=== PATIENT | female | born 1980 | race Caucasian/White ===

== ENCOUNTER 2020-11-29 14:23 | Emergency (ER) | payer OTHER ==
[2020-11-29 14:41] VITALS: BP 129/89; PULSE 72; TEMP 98.1; BMI 29.2
[2020-11-29] MEDS ORDERED: ONDANSETRON 4 MG/2 ML VIAL IVPB ONE (16:41)
[2020-11-29] MEDS ORDERED: SODIUM CHLORIDE 1,000 ML IV STA ×2 (16:41→19:07)
[2020-11-29] MEDS ORDERED: FAMOTIDINE 20 MG/50 ML IVPB 20 MG/50 ML MG IVPB ONE ×2 (16:41→17:23)
[2020-11-29 16:50] LABS: BASO % 0.5 % (0-2.0); EOS % 1.1 % (0-4.5); HEMATOCRIT 40.4 % (32.4-45.2); HEMOGLOBIN 13.9 GM/dL (10.7-15.3); LYMPH % 43.1 % (8-40); MCH 29.8 pg (25.7-33.7); MCHC 34.4 g/dl (32.0-36.0); MEAN CELL VOLUME 86.5 fl (80-96); MEAN PLT VOLUME 8.7 fl (7.5-11.1); NEUT % 50.3 % (42.8-82.8); PLATELET COUNT 302 K/MM3 (134-434); RBC 4.67 M/mm3 (3.60-5.2); WHITE BLOOD COUNT 9.3 K/mm3 (4.0-10.0)
[2020-11-29 17:17] LABS: CHLORIDE 104 mmol/L (98-107); SODIUM 127 mmol/L (136-145)
[2020-11-29 17:19] LABS: BLOOD UREA NITROGEN 10.8 mg/dL (7-18); CALCIUM 8.5 mg/dL (8.5-10.1); LIPASE 51 U/L (73-393)
[2020-11-29 17:20] LABS: ALBUMIN 3.3 g/dl (3.4-5.0); CO2 30 mmol/L (21-32); GLUCOSE,RANDOM 74 mg/dL (74-106)
[2020-11-29 17:23] LABS: CREATININE 0.9 mg/dL (0.55-1.3)
[2020-11-29] MEDS ORDERED: ONDANSETRON 4 MG/2 ML VIAL ONE (17:23)
[2020-11-29 17:24] LABS: TOT PROT 8.2 g/dl (6.4-8.2)
[2020-11-29 17:25] LABS: ALK PHOS 55 U/L (45-117)
[2020-11-29 17:30] LABS: ANION GAP -7 MMOL/L (8-16); SGOT/AST 113 U/L (15-37); SGPT/ALT 30 U/L (13-61)
[2020-11-29 17:34] LABS: POTASSIUM > 10.0 mmol/L (3.5-5.1)
[2020-11-29 19:36] LABS: HCG,QUALITATIVE URINE Negative
[2020-11-29 19:39] LABS: PH,URINE 6.5 (5.0-8.0); URINE APPEARANCE CLEAR; URINE BILIRUBIN NEGATIVE (NEGATIVE); URINE COLOR YELLOW; URINE GLUCOSE (UA) NEGATIVE (NEGATIVE); URINE KETONE NEGATIVE (NEGATIVE)
[2020-11-29 19:40] LABS: URINE LEUK ESTERASE 1+ (NEGATIVE); URINE NITRITE NEGATIVE (NEGATIVE); URINE PROTEIN NEGATIVE (NEGATIVE)
[2020-11-29 19:46] LABS: EPI CELLS 10 /uL (0-25.1); HYALINE CASTS 3 /uL (0-3.1); URINE BACTERIA 581 /uL (0-1359); URINE RBC 11 /uL (0-23.9); URINE WBC 53 /uL (0-25.8)
[2020-11-29] MEDS ORDERED: ONDANSETRON *ODT* 4 MG TABLET SL ONE (20:36)
[2020-11-29] MEDS ORDERED: ONDANSETRON *ODT* 4 MG TABLET ONE (21:04)
== END 2020-11-29 21:34 | disposition home or self-care (01) ==
LOC: JER 14:23
PROC: 3E033GC Introduction of Other Therapeutic Substance into Peripheral Vein, Percutaneous Approach (ICD-10-PCS; principal; 2020-11-29)
PROC: 3E033GC Introduction of Other Therapeutic Substance into Peripheral Vein, Percutaneous Approach (ICD-10-PCS; 2020-11-29)
PROC: 3E0337Z Introduction of Electrolytic and Water Balance Substance into Peripheral Vein, Percutaneous Approach (ICD-10-PCS; 2020-11-29)
PROC: 3E0337Z Introduction of Electrolytic and Water Balance Substance into Peripheral Vein, Percutaneous Approach (ICD-10-PCS; 2020-11-29)
DX: E87.1 Hypo-osmolality and hyponatremia (principal); R11.2 Nausea with vomiting, unspecified; N30.00 Acute cystitis without hematuria
CPT/HCPCS: 36415; 76705-TC; 80053; 81003; 83690; 84132; 84703; 85025; 87086; 93005; 93010; 99285-25; Q0162

== ENCOUNTER 2022-10-03 20:29 | Emergency (ER) | payer OTHER ==
[2022-10-03 20:48] VITALS: BP 136/86; PULSE 69; RESP 18; TEMP 97.9; BMI 27.8
[2022-10-03] MEDS ORDERED: SODIUM CHLORIDE 0.9% 500 ML INFUS.BAG IV ONE (21:38)
[2022-10-03] MEDS ORDERED: PHENTOLAMINE MESYLATE 5 MG/2 ML VIAL IVPUSH ONE (21:38)
[2022-10-03] MEDS ORDERED: METOCLOPRAMIDE HCL INJECTION 10 MG/2 ML VIAL IVPUSH ONE (21:47)
[2022-10-03] MEDS ORDERED: METOCLOPRAMIDE HCL INJECTION 10 MG/2 ML VIAL ONE (21:52)
[2022-10-03 22:06] LABS: BASO % 0.2 % (0-2.0); EOS % 0.7 % (0-4.5); HEMATOCRIT 40.6 % (32.4-45.2); HEMOGLOBIN 13.4 GM/dL (10.7-15.3); LYMPH % 17.4 % (8-40); MCH 28.7 pg (25.7-33.7); MCHC 33.1 g/dl (32.0-36.0); MEAN CELL VOLUME 86.9 fl (80-96); MEAN PLT VOLUME 8.6 fl (7.5-11.1); NEUT % 77.7 % (42.8-82.8); PLATELET COUNT 312 10^3/uL (134-434); RBC 4.67 M/mm3 (3.60-5.2); RDW 12.7 % (11.6-15.6); WHITE BLOOD COUNT 13.6 K/mm3 (4.0-10.0)
[2022-10-03 22:25] LABS: ALBUMIN 3.6 g/dl (3.4-5.0); BLOOD UREA NITROGEN 9.1 mg/dL (7-18); CALCIUM 8.8 mg/dL (8.5-10.1); MAGNESIUM 1.9 mg/dL (1.8-2.4)
[2022-10-03 22:28] LABS: CREATININE 0.8 mg/dL (0.55-1.3)
[2022-10-03 22:30] LABS: TOT PROT 7.3 g/dl (6.4-8.2)
[2022-10-03 22:37] LABS: ACTIVATED PTT 32.7 SECONDS (25.2-36.5); INR 1.4 (0.83-1.09); PROTHROMBIN TIME (PATIENT) 16.2 SEC (9.7-13.0)
[2022-10-03 23:21] LABS: BILIRUBIN,TOTAL 0.4 mg/dL (0.2-1)
== END 2022-10-03 22:49 | disposition left against medical advice (07) ==
LOC: JER 20:29
PROC: 3E033GC Introduction of Other Therapeutic Substance into Peripheral Vein, Percutaneous Approach (ICD-10-PCS; principal; 2022-10-03)
DX: G43.909 Migraine, unspecified, not intractable, without status migrainosus (principal); R11.2 Nausea with vomiting, unspecified
CPT/HCPCS: 36415; 80053; 83735; 84703; 85025; 85610; 85730; 99284-25; 99285-25